=== PATIENT | male | born 1950 | race Caucasian/White ===

== ENCOUNTER 2023-01-16 09:46 | Outpatient (CLI) | payer MEDICARE, OTHER | END 2023-01-16 09:47 | disposition short-term general hospital (02) | LOC: EMS 09:46 | DX: U07.1 COVID-19 (principal); R06.00 Dyspnea, unspecified; J02.9 Acute pharyngitis, unspecified; R51.9 Headache, unspecified; R05.9 Cough, unspecified; R50.9 Fever, unspecified | CPT/HCPCS: A0425; A0429 ==

== ENCOUNTER 2024-05-11 11:14 | Outpatient (CLI) | payer MEDICARE, OTHER ==
--- NOTE | 2024-05-11 12:25 | SLEEP CARE CONSULTATION ---
Information from patient questionnaire entered by Nimesh Smith. I have reviewed and concur with the information entered by Nimesh Smith. This document represents the service I personally performed and the decisions made by me, Rolo Roach MD, [facility]. History of Present Illness Service Date and Time: 05/11/2024 1114 Reason for Visit: New patient Chief Complaint: reports: Insomnia, Observed pauses in breathing Date of Onset: 1YR Usual bedtime: 2100 Time it takes to fall asleep: HRS Observed to quit breathing while asleep: Yes Sleeps alone due to snoring: No Number of times waking at night: 0600 Reasons for waking at night: reports: Bathroom, Other (UNKNOWN) Toss, Turn, or Twitch while sleeping: Yes Recalls having dreams: Yes Usually gets out of bed at: 0600 Feels refreshed in the morning: No Morning headache: No Sleepy or fatigued during the day: Yes Ever fallen asleep while driving: No Takes day naps: No Prior sleep studies: No Additional HPI information: I had the pleasure of seeing Mr. Chowdhury today regarding the possibility of him having a sleep disorder. As you know, he is a 72-year-old gentleman who complains of insomnia and observed apneas. The patient tells me that he normally goes to bed around 9 pm, and it takes him approximately hours to fall asleep. He has not been told that he snores or stop breathing at night. However, he has woken up chocking and gasping for air. He has been sleeping yaniv ne for a year now since his . He can recall waking up on the average of 2 - 3 times during the night. Most of the time he wakes up because of having to use the bathroom. He has awakened occasionally because of his own snoring, choking, and having to gasp for air. There is a lot of tossing and turning in his sleep. No somniloquy (sleep talking) or somnambulism (sleep walking). Generally, he can recall having dreams. In the morning he usually gets up out of the bed around 6 a.m. not feeling refreshed nor rested. He usually does not have a morning headache. During the day he complains of feeling sleepy and fatigued. His score on [place] Sleepiness Scale is 14 out of 24. He never has fallen asleep while driving nor has had any accident due to sleepiness. He usually does not take naps during the day. Upon falling asleep during the day he denies having vivid dreams. He has never had sleep paralysis, experienced cataplexy or symptoms of restless leg syndrome. He reports having impaired concentration during the day. - Parasomnia Symptoms Ever been unable to move upon waking from sleep: No Walks in sleep: No Ever felt weak in the knees when startled or emotional: No Bothered by creepy, crawly, restless sensations in legs: No Problems with memory or concentration: Yes Subjective Initial [place] Sleepiness Scale score: 14 (05/11/24) Past Medical History Past Medical History: reports: Congestive Heart Failure, Arthritis, Arrythmia Social History The patient's occupation is a RE. Patient is / and lives in . Have you smoked in the past 12 months: No Cigarettes per day (20/pack): 20 Years of smokin Quit date: 2010 Smoking Pack Years: 20.0 Alcohol use: Yes Alcohol amount and frequency: NOT MUCH JUST WITH COMPANY Caffeine use: Yes Caffeine amount and frequency: 1 CAN DAILY Family History Family history of sleep disordered breathing: Yes Family Hx Sleep Apnea: Sibling: Snoring, Sleep apnea - Treated Allergies and Home Medications Drug allergies reviewed: Yes Home medication list reviewed: Yes Allergy and home medication list: Allergies No Known Drug Allergies Allergy (Verified 05/05/24 08:03) Review of Systems Cardiovascular: reports: high blood pressure, palpitations, irregular heart rate or pulse Respiratory: denies: shortness of breath, wheeze, sputum production, chronic cough, other Gastrointestinal: denies: heartburn, difficulty swallowing, nausea, vomitting, diarrhea, abdominal pain, other Urinary: reports: frequency Neurological: denies: headaches, seizure, head trauma, disorientation, speech d ysfunction, gait or balance problems, fainting or unconsciousness, other Psychiatric: denies: Attention Deficit Hyperactivity, anxiety, depression, mood disorder, claustrophobia, other Ear/Nose/Throat: reports: tonsillectomy Endocrine: reports: sluggishness, increased appetite, increased urination Musculoskeletal: reports: other (KNEE REPLACEMENT) Immunologic: denies: sneezing, rash, itching, allergies to food or environment, other Physical Exam Vital signs obtained and entered by: NIMESH Hidalgo MA Blood Pressure: 137/71 (RIGHT ARM) Cuff size: regular Heart Rate: 52 O2 Saturation: 98 Height: 6 ft Weight: 224 lb 12.8 oz Body Mass Index: 30.4 BMI Classification: Obese Neck circumference: 17.5 Mood/affect: normal HEENT: No craniofacial malformation Nostrils: patent to airflow Turbinates: normal Septum: midline Mouth and throat: narrow oropharynx Soft palate: long Hard palate: normal Uvula: normal Uvula visualization: 50% Mallampati Class II Tongue: normal in size Tonsils: absent bilaterally Chin and jaw: normal size and position Neck: normal w/o lymphadenopathy or thyromegaly Heart: regular rate and rhythm Lungs: clear bilaterally Extremities: no edema or clubbing Neurologic: intact Impression and Plan IMPRESSION: 1. Obstructive Sleep Apnea-Hypopnea Syndrome, as suggested by history of frequent awakenings during the night, nocturnal choking, unrefreshed sleep, cognitive impairment, and daytime hypersomnolence. Narrow oropharynx and obesity are common predisposing factors for obstructive sleep apnea-hypopnea syndrome. He also has several comorbiditiesatrial fibrillation, ischemic heart disease, and congestive heart failure. I recommend proceeding to polysomnography to confirm the diagnosis and to assess severity. If he has significant sleep disordered breathing, a manual CPAP titration study will also be performed to find the optimal treatment pressure. I informed the patient of what the sleep studies involve and after some discussion, he agreed to proceed. 2. Insomnia, mild, involving both the sleep onset and maintenance. The patient is bother most with waking up around 3 am and having to take trazodone at that time. Sleep-related breathing disorder may be a factor. Plan: 1. Schedule polysomnography + manual CPAP titration study and return in 1 to 2 weeks after the study to discuss result and initiate therapy. 2. Avoid long distance driving or when feeling sleepy. 3. Avoid alcohol, sedatives and muscle relaxants around bedtime. 4. Attempt to lose weight. Follow up with Sleep Care in: 1-2 months Visit Type: In Office Time Spent with Patient (minutes): 15 Provider Statement: I spent 100% of the Face to Face Visit with the patient with greater than 50% spent counseling the patient and coordination of care.
[2024-05-11 12:34] VITALS: BP 137/71; O2SAT 98
== END 2024-05-11 11:15 | disposition home or self-care (01) ==
LOC: SC 11:14
PROVIDERS: ATTEND Internal Medicine Pulmonary Disease
DX: G47.10 Hypersomnia, unspecified (principal); G47.8 Other sleep disorders; R41.89 Other symptoms and signs involving cognitive functions and awareness; R06.81 Apnea, not elsewhere classified; G47.00 Insomnia, unspecified; I48.91 Unspecified atrial fibrillation; I50.9 Heart failure, unspecified; I25.9 Chronic ischemic heart disease, unspecified; E66.9 Obesity, unspecified; Z68.30 Body mass index [BMI] 30.0-30.9, adult
CPT/HCPCS: 99202; G0463; 99212

== ENCOUNTER 2024-06-14 19:34 | Outpatient (CLI) | payer MEDICARE, OTHER | END 2024-06-14 19:35 | disposition home or self-care (01) | LOC: SC 19:34 | PROVIDERS: ATTEND Internal Medicine Pulmonary Disease | DX: G47.10 Hypersomnia, unspecified (principal); G47.00 Insomnia, unspecified; G47.8 Other sleep disorders; I49.9 Cardiac arrhythmia, unspecified; I51.9 Heart disease, unspecified | CPT/HCPCS: 95810 ==

== ENCOUNTER 2024-07-13 10:21 | Outpatient (CLI) | payer MEDICARE, OTHER ==
--- NOTE | 2024-07-13 10:44 | SLEEP CARE CONSULTATION ---
Information from patient questionnaire entered by Nimesh Smith. I have reviewed and concur with the information entered by Nimesh Smith. This document represents the service I personally performed and the decisions made by me, Rolo Roach MD, [facility]. History of Present Illness Service Date and Time: 07/13/2024 1021 Current [place] Sleepiness Scale score: 13 (07/13/24) Additional HPI information: Mr. Chowdhury returned for follow up of the sleep study he had on 06/14/24. The polysomnography showed that the patient had reduced sleep efficiency due to two prolonged awakenings during the night. The sleep architecture was abnormal for mild sleep fragmentation and reduced amount of time spent in REM sleep. Respiratory monitoring showed no significant sleep disordered breathing (AHI = 1.8) or hypoxia (shane oxygen saturation of 89%). Few respiratory events occurred during supine sleep (supine AHI = 3.8; non-supine = 0.85). Snore was infrequent and light in intensity. There was no significant periodic leg movement of sleep. Cardiac rhythm was normal sinus rhythm without significant arrhythmia. No abnormal behavior (parasomnia) observed during the night. Sleep Study - Results Type of Sleep Study: Polysomnography (COMPLETED 06/14/24) Allergies and Home Medications Drug allergies reviewed: Yes Home medication list reviewed: Yes Allergy and home medication list: Allergies No Known Drug Allergies Allergy (Verified 07/13/24 10:22) Review of Systems Review of systems same as previous: Yes (NO CHANGE) Physical Exam Vital signs obtained and entered by: NIMESH Hidalgo MA Blood Pressure: 154/79 (LEFT ARM) Cuff size: regular Heart Rate: 57 O2 Saturation: 97 Height: 6 ft Weight: 221 lb 12.8 oz Body Mass Index: 30.0 BMI Classification: Obese Impression and Plan IMPRESSION: 1. Insomnia, involving mostly sleep maintenance. This probably is because he spends excessive time in bed11 hours (he goes into bed at 7 pm and out of bed at 6 am). The patient agrees that his activity level decreased significantly after his and that was when his insomnia started. I advised him to limit time spent in bed to 8 hours and to stay active during the day, so that he would not nap. PLAN: 1. Maintain a regular wake up time and spend no more than 8 hours in bed at night. Avoid naps. 2. Return for a follow up on as needed basis. Counseling Topics: Activity level Follow up with Sleep Care in: as needed Visit Type: In Office Time Spent with Patient (minutes): 15 Provider Statement: I spent 100% of the Face to Face Visit with the patient with greater than 50% spent counseling the patient and coordination of care.
[2024-07-13 10:52] VITALS: BP 154/79; O2SAT 97
== END 2024-07-13 10:22 | disposition home or self-care (01) ==
LOC: SC 10:21
PROVIDERS: ATTEND Internal Medicine Pulmonary Disease
DX: G47.00 Insomnia, unspecified (principal); E66.9 Obesity, unspecified; Z68.30 Body mass index [BMI] 30.0-30.9, adult; Z63.4 Disappearance and death of family member
CPT/HCPCS: 99212; G0463